=== PATIENT | male | born 1970 | race Caucasian/White ===

== ENCOUNTER 2023-02-10 08:19 | Emergency (ER) | payer OTHER, SELFPAY ==
[2023-02-10 08:20] VITALS: BP 149/91; PULSE 63; RESP 14; TEMP 36.4; O2SAT 99; BMI 35.9
[2023-02-10 08:44] VITALS: BP 131/77; BP 148/87; BP 149/100; PULSE 60; PULSE 68; PULSE 78
[2023-02-10 09:01] LABS: Hematocrit 42.6 % (40-54); Hemoglobin 14.4 g/dL (13.0-16.5); Mean Corp Hgb Conc 33.8 g/dL (32-36); Mean Corpuscular Hgb 30.2 pg (27.0-32.0); Mean Corpuscular Volume 89.3 fL (80-94); Mean Platelet Vol. 9.5 fl (6.2-12.0); Platelet Count 237 K/mm3 (150-450); RBC Distribution Width CV 12.3 % (11.6-14.6); RBC Distribution Width SD 40.5 fl (35.1-43.9); Red Blood Count 4.77 M/mm3 (4.6-6.2); White Blood Count 6.5 K/mm3 (4.4-11.0)
[2023-02-10 09:15] LABS: Anion Gap 5 (5-15); BUN 18 mg/dL (7-18); BUN/Creat Ratio 16.8 RATIO (10-20); Calcium,Total 8.6 mg/dL (8.5-10.1); Chloride 104 mmol/L (98-107); Creatinine, Serum 1.07 mg/dL (0.70-1.30); EST Glomerular Filtration Rate 77 mL/min (>60); Est Glom Filt Rate - Afr Amer 93 mL/min (>60); Estimated Creatinine Clearance 83.39 ml/min; Glucose 129 mg/dL (74-106); Potassium 4.1 mmol/L (3.5-5.1); Sodium Level 139 mmol/L (136-145)
[2023-02-10 10:19] VITALS: BP 119/77; PULSE 59; RESP 15; O2SAT 97
--- NOTE | 2023-02-10 10:26 | EDS_ITS ---
HPI History of Present Illness Chief Complaint: Dizziness Detail of Chief Complaint: Dizziness/lightheadedness Informant: patient Onset/Context/Timing Onset: Today and Yesterday Context: Sudden Onset Timing: Intermittent Quality: Patient's definition of dizziness is being lightheaded not vertigo Location: Today he was sweeping the garage Current Severity: Gone Maximum Severity: Mild Worsened by: Nothing specific possibly change in position and upright position Relieved by: Nothing Associated Symptoms Associated Symptoms: Nausea Narrative Narrative: Patient is a 52-year-old male with history of hypertension, hypercholesterolemia and type 2 diabetes. He has been on metformin for the past year. He has had no change in his medication or doses of his medication. He denies black or maroon- colored stool. He denies vomiting or diarrhea. He states he had an episode yesterday at work. He was seen at [facility]. He had 3 EKGs which were all normal. He had cardiac markers and repeat cardiac markers that were normal. His work-up yesterday was normal. The physician there recommended outpatient stress test. Today while sweeping the garage prior to getting ready for work he became lightheaded. This is not associated with headache, visual or ocular symptoms. This is not associated with ringing's ears or decreased hearing. He did not have any trouble with speech or swallowing. Daughter that is presently with him did not notice any change in his voice or delivery. He denies chest discomfort, shortness of breath, orthopnea or PND. He denies leg pain, swelling or discoloration. He has no history of PE or DVT. Prior similar symptoms: Yes Recent Illness/Hospitalization: Yes [facility] Medical History Diabetes mellitus High cholesterol HTN (hypertension) Home Medications atorvastatin 20 mg tablet 20 mg PO DAILY 02/10/23 [History Last Taken Unknown] lisinopril 5 mg tablet 5 mg PO DAILY 02/10/23 [History Last Taken Unknown] metformin 500 mg tablet,extended release 24 hr 500 mg PO DAILY 02/10/23 [History Last Taken Unknown] Allergy/AdvReac Type Severity Reaction Status Date / Time No Known Allergies Allergy Verified 02/10/23 08:23 Surgical History no surgical history Social History (Updated 02/10/23 @ 10:[address] Juan David Fowler MD) household members: spouse and children Smoking Status: Never smoker substance use type: does not use ROS ROS ED Constitutional Constitutional ED: Denies chills, fever(s), subjective, sweats or weight loss Eyes Eyes: Denies blurry vision, change in vision or diplopia ENT ENT ED: Denies ear pain, rhinorrhea or sore throat Cardiovascular Cardiovascular: Denies chest pain, orthopnea, palpitations, paroxysmal nocturnal dyspnea or racing heartbeat Respiratory/Chest Respiratory/Chest: Denies cough, dyspnea, dyspnea on exertion, orthopnea or paroxysmal nocturnal dyspnea Gastrointestinal Gastrointestinal: Denies abdominal pain, diarrhea, melena, nausea or vomiting Genitourinary Genitourinary ED: Denies hematuria Musculoskeletal Musculoskeletal: Denies arthralgias, back pain or myalgias Neurologic Neurologic: Denies headache(s) or paresthesias Psychiatric Psychiatric: Denies anxiety Endocrine Endocrinology: Denies cold intolerance or heat intolerance Hematologic/Lymphatic Hematologic/Lymphatic: Reports systems reviewed and no addt'l complaints, except as documented EXAM Physical Exam Narrative Exam Narrative: Signs are unremarkable. Orthostatic vital signs are normal. Const Vital Signs: 02/10/23 08:20 02/10/23 08:26 02/10/23 08:44 Temperature 97.5 F L Temperature Source Temporal Pulse Rate 63 Pulse Rate [Lying] 60 Pulse Rate [Sitting (for 1 minute prior to obtaining)] 68 Pulse Rate [Standing (for 1 minute prior to obtaining)] 78 Respiratory Rate 14 Respiratory Pattern Normal Blood Pressure 149/91 H Blood Pressure [Lying] 131/77 H Blood Pressure [Sitting (for 1 minute prior to obtaining)] 148/87 H Blood Pressure [Standing (for 1 minute prior to obtaining)] 149/100 H Blood Pressure Mean 110 Blood Pressure Mean [Lying] 95 Blood Pressure Mean [Sitting (for 1 minute prior to obtaining)] 107 Blood Pressure Mean [Standing (for 1 minute prior to obtaining)] 116 Pulse Ox 99 Oxygen Delivery Method Room Air 02/10/23 10:19 Temperature Temperature Source Pulse Rate 59 L Pulse Rate [Lying] Pulse Rate [Sitting (for 1 minute prior to obtaining)] Pulse Rate [Standing (for 1 minute prior to obtaining)] Respiratory Rate 15 Respiratory Pattern Blood Pressure 119/77 Blood Pressure [Lying] Blood Pressure [Sitting (for 1 minute prior to obtaining)] Blood Pressure [Standing (for 1 minute prior to obtaining)] Blood Pressure Mean 91 Blood Pressure Mean [Lying] Blood Pressure Mean [Sitting (for 1 minute prior to obtaining)] Blood Pressure Mean [Standing (for 1 minute prior to obtaining)] Pulse Ox 97 Oxygen Delivery Method Room Air Positive well nourished, well developed and obese General Appearance ED: well developed and NAD; Negative for cyanotic, diaphoretic or pallor Nutritional Appearance: obese HEENT Reports moist mucous membranes HEENT Narrative: Head is atraumatic normocephalic. Ears normal. Nares patent. Posterior pharynx normal. Eyes PERRL and EOMs intact bilaterally General Eye ED: Negative for pale conjunctiva Neck no lymphadenopathy, supple and no JVD Chest Wall inspection of chest normal and palpation of chest normal Resp normal respiratory effort and clear to auscultation bilaterally Cardio regular rate, regular rhythm, S1 normal heart sound, S2 normal heart sound and no murmurs GI normal to inspection, nondistended, normoactive bowel sounds, non-tender, non- distended and no masses; Negative for hepatosplenomegaly Back/Spine Back/Spine Narrative: Inspection of the back is normal. Extremity Extremity Narrative: There is no asymmetry, swelling, discoloration, leg vein distention, palpable cords or tenderness along the distribution of the deep venous system. Neuro oriented x3, CN's II-XII intact bilaterally and no sensory deficits noted Sensorium / Orientation: alert Psych mental status grossly normal Skin no rashes or lesions noted, no wounds and skin turgor normal General Skin Exam: Negative for jaundice or pallor MDM MDM MDM Narrative Medical decision making narrative: With orthostatic symptoms. We will have orthostatic vitals obtained. We will obtain CBC to assess H&H and see if there is a change from yesterday. BMP to assess electrolyte function and more importantly BUN to creatinine ratio. History & Record Review Additional record(s) reviewed:: Prior ED visit ([facility]) Lab Data Attestation: I reviewed the patient's lab results. Lab results narrative: CBC and BMP are unremarkable. Glucose is 129 with a CO2 and gap. Labs: Laboratory Results - last 24 hr 02/10/23 08:50 WBC 6.5 RBC 4.77 Hgb 14.4 Hct 42.6 MCV 89.3 MCH 30.2 MCHC 33.8 RDW Std Deviation 40.5 RDW Coeff of Donald 12.3 Plt Count 237 MPV 9.5 Sodium 139 Potassium 4.1 Chloride 104 Carbon Dioxide 30.0 Anion Gap 5 BUN 18 Creatinine 1.07 Estim Creat Clear Calc 83.39 Est GFR (MDRD) Af Amer 93 Est GFR (MDRD) Non-Af 77 BUN/Creatinine Ratio 16.8 Glucose 129 H Calcium 8.6 Treatment and Re-Evaluation :: Was informed the cause of his lightheadedness is unknown. Will refer to cardiology. He may need an echocardiogram this continues or table tilt test. Discharge Plan Triage Chief Complaint: Dizziness ED Provider: Juan David Fowler Dx/Rx/DC Orders Clinical Impression: History of hypercholesterolemia, Hx of type 2 diabetes mellitus, Orthostatic dizziness, History of hypertension Instructions: ED Dizziness, Uncertain Cause Prescriptions: No Action atorvastatin 20 mg tablet 20 mg PO DAILY Patient Comments: TAKE 1 TABLET BY MOUTH DAILY AT BEDTIME. FOR CHOLESTEROL lisinopril 5 mg tablet 5 mg PO DAILY Patient Comments: TAKE 1 TABLET BY MOUTH EVERY DAY metformin 500 mg tablet extended release 24 hr 500 mg PO DAILY Patient Comments: TAKE 1 TABLET BY MOUTH EVERY DAY WITH BREAKFAST Primary Care Provider: John Benedict Referrals: Jaiden Mo MD [Med Staff - Active Staff] - 1-2 Weeks John Benedict MD [Primary Care Provider] - 1 Week if not improving Activity Restrictions/Additional Instructions: If your symptoms continue you need an echocardiogram or possibly a table tilt test. Disposition Disposition: Home, Self Care
== END 2023-02-10 10:41 | disposition home or self-care (01) ==
PROVIDERS: Emergency Provider Emergency Medicine; PCP Family Medicine; Visit Provider Emergency Medicine
DX: R42 Dizziness and giddiness (principal); E11.9 Type 2 diabetes mellitus without complications; E78.00 Pure hypercholesterolemia, unspecified; Z79.84 Long term (current) use of oral hypoglycemic drugs; I10 Essential (primary) hypertension; Z79.899 Other long term (current) drug therapy
CPT/HCPCS: 80048; 85027; 99285

== ENCOUNTER → 2023-03-04 | Outpatient (CLI) | payer OTHER, SELFPAY ==
--- NOTE | 2023-03-04 11:10 | STRESSREP_ITS ---
Stress Test Report Date: 03/04/2023 Procedure: Exercise tolerance test Indications: Chest pain Consent: Per the patient Procedure: The patient exercised on a Kral protocol for 9 minutes and 31 seconds achieving a peak heart rate of 179 bpm (106% predicted maximal heart rate) with a peak blood pressure 198/82 mmHg and a peak MET capacity of approximately 11.7 MET's. The baseline ECG demonstrated normal sinus rhythm. The peak exercise ECG demonstrated no ischemic changes. There were no cardiac dysrhythmias pretest, during exercise, or recovery. The functional capacity was considered good. The patient had no complaints of chest discomfort during exercise or recovery. The examination was discontinued secondary to target heart rate being achieved and dyspnea. Impression: 1. Technically adequate (percent predicted maximal heart rate greater than 85%) exercise tolerance test 2. Peak exercise ECG with no ischemic changes 3. There were no cardiac dysrhythmias during exercise or recovery This note was generated with [employer] software. It may contain incorrect words, spelling, and punctuation that were not noted in checking the note before signing.
== END | disposition home or self-care (01) ==
LOC: CVS 09:33
PROVIDERS: PCP Family Medicine; Referring Provider Family Medicine; Visit Provider Family Medicine
DX: R07.9 Chest pain, unspecified (principal); R55 Syncope and collapse
CPT/HCPCS: 93017

== ENCOUNTER 2024-06-19 00:14 | Emergency (ER) | payer OTHER, SELFPAY ==
[2024-06-19 00:15] VITALS: BP 178/98; PULSE 69; RESP 18; TEMP 36.4; O2SAT 100; BMI 36.3
--- NOTE | 2024-06-19 01:08 | EX.ED.DYSGE1 ---
HPI History of Present Illness Chief Complaint: Hypertension Informant: patient and spouse/S.O. Onset/Context/Timing Onset: Days Context: Gradual Onset Timing: Intermittent Current Severity: Mild Maximum Severity: Mild Narrative Narrative: 34-year-old male history of hypertension on lisinopril 5 mg once a day takes at night. He also has a history of diabetes. Recently his blood pressures have been running elevated. Today it was 165/97 and 188/101. No significant symptoms. Saw his primary care physician a week or 2 ago freshening office wolves 160/80 they were watching it. He denies any other complaints. Denies any severe headache or chest pain. Prior similar symptoms: Yes Recent Illness/Hospitalization: No PFSH PFSH Medical History High cholesterol Diabetes mellitus HTN (hypertension) Home Medications ?Medication ?Instructions ?Recorded ?Last Taken ?Type atorvastatin 20 mg tablet 20 mg PO DAILY 02/10/23 Unknown History lisinopril 5 mg tablet 5 mg PO DAILY 02/10/23 Unknown History metformin 500 mg tablet,extended 500 mg PO DAILY 02/10/23 Unknown History release 24 hr Allergy/AdvReac Type Severity Reaction Status Date / Time No Known Allergies Allergy Verified 06/19/24 00:15 Social History household members: spouse and children Smoking Status: Never smoker substance use type: does not use ROS ROS ED ROS Narrative Denies recent illness. Constitutional Constitutional ED: Denies chills or fever(s) Eyes Eyes: Denies blurry vision ENT ENT ED: Denies ear pain Cardiovascular Cardiovascular: Denies chest pain Respiratory/Chest Respiratory/Chest: Denies cough Gastrointestinal Gastrointestinal: Denies abdominal pain Genitourinary Genitourinary ED: Denies dysuria Musculoskeletal Musculoskeletal: Denies arthralgias Integumentary Denies abscess Neurologic Neurologic: Denies headache(s) Psychiatric Psychiatric: Denies anxiety Endocrine Endocrinology: Denies cold intolerance Hematologic/Lymphatic Hematologic/Lymphatic: Reports none Allergic/Immunologic Allergic/Immunologic ED: Denies mouth swelling, tongue swelling or urticaria EXAM Physical Exam Narrative Exam Narrative: Well-appearing 54-year-old male. Vital signs stable initial blood pressure 178/98. He does not look septic, toxic or in any acute distress. H EENT exam unremarkable. Pupils round react light. No facial droop. Normal speech. No trauma. Neck nontender. Lungs clear to auscultation bilaterally. Heart regular rate and rhythm rate about 70 no murmur. Chest wall ribs nontender. Abdomen soft nontender. Moving all 4 extremities. 5 out of 5 medical claims examiner strength. Dorsi plantarflexion intact. Nontender no edema. Back nontender. Neurologic exam normal. NIH 0. Awake and alert. Answering questions following commands. Const Vital Signs: 06/19/24 00:15 06/19/24 00:56 Temperature 97.5 F L Temperature Source Temporal Pulse Rate 69 Respiratory Rate 18 Respiratory Effort Normal Respiratory Pattern Normal Blood Pressure 178/98 H Blood Pressure Mean 124 Pulse Ox 100 Oxygen Delivery Method Room Air Positive well nourished and well developed; Negative for cachectic, contractures or unkempt General Appearance ED: well developed and NAD; Negative for unkempt, cachectic, contractures, cyanotic, diaphoretic or pallor Nutritional Appearance: Negative for cachectic HEENT Reports moist mucous membranes Negative for trauma or tenderness Eyes PERRL and EOMs intact bilaterally General Eye ED: Negative for pale conjunctiva Neck no lymphadenopathy, supple and no JVD Chest Wall inspection of chest normal and palpation of chest normal Resp normal respiratory effort and clear to auscultation bilaterally Effort and Inspection: Negative for retractions Auscultation: Negative for rales, rhonchi, wheezes or diminished lung sounds Cardio regular rate, regular rhythm, S1 normal heart sound, S2 normal heart sound and no murmurs GI normal to inspection, nondistended, normoactive bowel sounds, non-tender, non-distended and no masses Palpation: soft; Negative for tender, guarding or rebound tenderness present Back/Spine no CVA tenderness Extremity normal to inspection General Extremety ED: Negative for edema or tenderness General Extremity: Negative for edema Neuro oriented x3 and CN's II-XII intact bilaterally Sensorium / Orientation: alert; Negative for orientation impaired, lethargic or stuporous Motor Exam: strength 5/5 throughout Psych mental status grossly normal Appearance: Negative for unkempt Mood & Affect: Negative for depressed, anxious or tearful Skin no rashes or lesions noted, no wounds and skin turgor normal General Skin Exam: elasticity normal; Negative for jaundice or pallor Lesions: No lesion noted Rashes: No rashes noted Trauma: Negative for abrasion Wounds: Negative for wounds noted MDM MDM MDM Narrative Medical decision making narrative: 54-year-old male known history of hypertension. Acute on chronic hypertension. I had a long discussion with he and his . We discussed blood pressure. He will log his blood pressure twice a day for the next week follow-up with his primary care physician to see if they need to adjust his blood pressure medication. I told him if its consistently running high he can take an additional 5 mg of lisinopril. I did review his most recent labs from the [facility] his kidney function has been normal in the last 2. I do not think anything needs any labs or workup today. His exam is normal. They are comfortable with the plan. Discharge Plan Triage Chief Complaint: Hypertension ED Provider: Rafita Mahajan Dx/Rx/DC Orders Prescriptions: No Action atorvastatin 20 mg tablet 20 mg PO DAILY Patient Comments: TAKE 1 TABLET BY MOUTH DAILY AT BEDTIME. FOR CHOLESTEROL lisinopril 5 mg tablet 5 mg PO DAILY Patient Comments: TAKE 1 TABLET BY MOUTH EVERY DAY metformin 500 mg tablet extended release 24 hr 500 mg PO DAILY Patient Comments: TAKE 1 TABLET BY MOUTH EVERY DAY WITH BREAKFAST Primary Care Provider: John Benedict Referrals: John Benedict MD [Primary Care Provider] - Print Language: Bolivian
[2024-06-19 01:17] VITALS: BP 160/102; PULSE 65; RESP 16; TEMP 36.4; O2SAT 96
== END 2024-06-19 01:34 | disposition home or self-care (01) ==
LOC: ED 01:29
PROVIDERS: Emergency Provider Emergency Medicine; PCP Family Medicine; Visit Provider Emergency Medicine
DX: I10 Essential (primary) hypertension (principal); E11.9 Type 2 diabetes mellitus without complications; E78.00 Pure hypercholesterolemia, unspecified
CPT/HCPCS: 99282